=== PATIENT | female | born 1990 | race Hispanic/Latino ===

== ENCOUNTER 2020-10-09 17:30 | Inpatient (IN) | payer OTHER, BC ==
[2020-10-11 12:34] VITALS: BMI 47.6
[2020-10-12] MEDS ORDERED: Heparin 5,000 UNITS/ML VIAL ONE (09:49)
[2020-10-12] MEDS ORDERED: Fentanyl 100 MCG/2 ML VIAL ONE ×3 (10:53→13:53)
[2020-10-12] MEDS ORDERED: Bupivacaine 0.25% HCL 30 ML VIAL ONE (11:33)
[2020-10-12] MEDS ORDERED: Lidocaine 1% w/Epinephrine 1:100K 20 ML VIAL ONE (11:33)
[2020-10-12] MEDS ORDERED: Midazolam HCl 2 mg/2 ml Vial ONE (11:37)
[2020-10-12] MEDS ORDERED: PROPOFOL 200 MG/20 ML VIAL ONE (12:39)
[2020-10-12] MEDS ORDERED: Ondansetron PF 4 MG/2 ML Vial ONE (12:39)
[2020-10-12] MEDS ORDERED: Ketorolac Tromethamine 30 MG/ML VIAL ONE (12:39)
[2020-10-12] MEDS ORDERED: Glycopyrrolate 0.2 MG/ML 5 ML SYRINGE ONE (12:39)
[2020-10-12] MEDS ORDERED: Dexamethasone 20 MG/5 ML VIAL ONE (12:39)
[2020-10-12] MEDS ORDERED: Lidocaine 1% PF 5 ML VIAL ONE (12:39)
[2020-10-12] MEDS ORDERED: Rocuronium Bromide 10 MG/ML (10ML VIAL) ONE (12:39)
--- NOTE | 2020-10-12 13:22 | OP ---
DATE OF PROCEDURE: 10/12/2020 PREOPERATIVE DIAGNOSES: 1. Morbid obesity with a body mass index of 48. 2. Diabetes mellitus, type 2. 3. Hyperlipidemia. 4. Hypertension. POSTOPERATIVE DIAGNOSES: 1. Morbid obesity with a body mass index of 48. 2. Diabetes mellitus, type 2. 3. Hyperlipidemia. 4. Hypertension. PROCEDURES PERFORMED: 1. Laparoscopic sleeve gastrectomy with Ethicon staple line reinforcement and 38-[place] bougie. 2. Paraesophageal hiatal hernia repair without fundoplication or mesh. ANESTHESIA: General. ESTIMATED BLOOD LOSS: Minimal. COMPLICATIONS: None. SPECIMENS: Stomach. FINDINGS: Normal postoperative EGD. DESCRIPTION OF PROCEDURE: The patient was taken to the operating room and laid supine on the operating room table. After general anesthetic was obtained, arms and legs were double strapped to bariatric table. The abdomen was prepped and draped in a sterile fashion. OG tube had been used to decompress the stomach. Left subcostal 5-mm Optiview trocar placed in usual fashion. High-flow pneumoperitoneum was obtained. Left and right abdominal 12-mm ports as well as a right subcostal 5-mm port were placed under direct visualization. Flynn retractor was brought in through a 5-mm incision at the xiphoid and used to raise the liver off the GE junction. Short gastrics were taken down from the midbody of the stomach to the left twan of diaphragm. Left twan, posterior fundus, and angle of His completely dissected, revealing a hiatal hernia. Circumferential dissection of the esophagus was performed, bringing the GE junction and fundus back into the abdominal cavity. The posterior crura were closed using an Ethibond and the Ti-KNOT system. Short gastrics had been taken down to a distance of 6 cm proximal to the pylorus. Multiple loads of an echelon stapling device with Ethicon staple line reinforcements used to perform the sleeve, the 1st was fired up at a distance of 6 cm proximal to the pylorus, angled up to the incisura. Care was taken to avoid being too close to incisura. Multiple loads were fired along the bougie. Stomach was completely transected at the angle of His. Stomach was removed from the left abdominal incision. This fascial defect was closed using GraNee needle and 0 Vicryl tie. Flynn was removed under direct visualization without bleeding or injury. EGD scope was passed through the esophagus, stomach to the level of duodenum without obstruction or bleeding. No stenosis. No stricture at the incisura. EGD scope was used to decompress stomach and was pulled and removed. All port sites were infiltrated using local anesthetic. All ports were removed under camera visualization. Pneumoperitoneum was let down. Vicryl was used to close the fascial defect from the left abdominal incisions. All incisions were irrigated and closed using 4-0 Monocryl and Dermabond. The patient was sent to Recovery in stable condition. All instrument counts, needle counts, and lap counts were correct. Job ID: [id number]
[2020-10-12] MEDS ORDERED: Dextrose 50% Abboject 50 ML SYRINGE SLOW IVP PRN (13:25)
[2020-10-12] MEDS ORDERED: SYMBICORT INH PRN (13:25)
[2020-10-12] MEDS ORDERED: Promethazine HCl 25 MG/ML VIAL IM PRN ×2 (13:25→13:42)
[2020-10-12] MEDS ORDERED: hydrALAZINE 20 MG/ML VIAL SLOW IVP PRN (13:25)
[2020-10-12] MEDS ORDERED: Dextrose 5% in Water 1,000 ML IV PRN (13:25)
[2020-10-12] MEDS ORDERED: diphenhydrAMINE 50 MG/ML VIAL IVP PRN ×2 (13:25→13:42)
[2020-10-12] MEDS ORDERED: Ondansetron PF 4 MG/2 ML Vial IVP PRN ×2 (13:25→13:42)
[2020-10-12] MEDS ORDERED: Hydrocodone-Acetamin 15 ML UDCUP PO PRN ×2 (13:25→13:49)
[2020-10-12] MEDS ORDERED: HumaLOG 300 UNITS/3 ML VIAL SC PRN (13:25)
[2020-10-12] MEDS ORDERED: Promethazine HCl 25 MG/ML VIAL ONE (13:27)
[2020-10-12] MEDS ORDERED: fentaNYL Citrate/PF 2,000 MCG in Sodium Chloride 0.9% 60 ML IV PRN (13:42)
[2020-10-12] MEDS ORDERED: diphenhydrAMINE 25 MG CAP PO PRN (13:42)
[2020-10-12] MEDS ORDERED: Naloxone HCl 0.4 mg/ml Vial IV PRN (13:42)
[2020-10-12] MEDS ORDERED: diphenhydrAMINE 50 MG/ML VIAL IM PRN (13:42)
[2020-10-12] MEDS ORDERED: Zolpidem Tartrate 5 MG TAB PO PRN (13:42)
[2020-10-12] MEDS ORDERED: Ketorolac Tromethamine 30 MG/ML VIAL IVP PRN (13:42)
[2020-10-12] MEDS ORDERED: Sodium Chloride 0.9% (PF) 10 ML VIAL FS PRN (13:45)
[2020-10-12] MEDS ORDERED: Communication Order-Pharmacy FS SCH (13:45)
[2020-10-12] MEDS: D5 1/2 NS w/20 mEq KCL 1,000 ML IV SCH ×2 (16:40→21:17)
[2020-10-12] MEDS ORDERED: Empagliflozin 25 MG TAB PO SCH (21:00)
[2020-10-12] MEDS ORDERED: Enoxaparin Sodium 40 MG/0.4 ML SYRINGE SC SCH (21:00)
[2020-10-13] MEDS: D5 1/2 NS w/20 mEq KCL 1,000 ML IV SCH (04:24)
[2020-10-13 06:48] LABS: #Lymphocytes 1.7 thou/uL (1.20-3.40); #Monocytes 0.6 thou/uL (0.11-0.59); #Neutrophils 7.4 thou/uL (1.40-6.50); %Basophils 0.1 % (0.0-1.0); %Eosinophils 0.1 % (0.0-10.0); %Lymphocytes 17.3 % (21.0-51.0); %Monocytes 6.6 % (0.0-10.0); %Neutrophils 75.9 % (42.0-75.0); Hemoglobin 14.3 g/dL (12.0-16.0); Mean Corpuscular HGB CONC 34.6 g/dL (32.0-36.0); Mean Corpuscular Hemoglobin 30.5 pg (27.0-31.0); Mean Corpuscular Volume 88.1 fL (78.0-98.0); Mean Platelet Volume 8.2 fL (7.4-10.4); Platelet Count 328 thou/uL (130-400); RBC Distribution Width 14.2 % (11.5-14.5); Red Blood Cell (RBC) Count 4.69 mill/uL (4.20-5.40); White Blood Cell (WBC) Count 9.7 thou/uL (4.8-10.8)
[2020-10-13 07:10] LABS: Anion Gap 17 mmol/L (10-20); BUN (Urea Nitrogen) 7 mg/dL (7.0-18.7); Calc. Creatinine Clearance 241 mL/min (70-130); Calcium 8.9 mg/dL (7.8-10.44); Carbon Dioxide 14 mmol/L (22-29); Chloride 107 mmol/L (98-107); Estimated GFR-MDRD Greater than 90; Glucose 107 mg/dL (70-105); Sodium 134 mmol/L (136-145)
--- NOTE | 2020-10-13 08:02 | DIS ---
DATE OF ADMISSION: 10/12/2020 DATE OF DISCHARGE: 10/13/2020 ADMIT DIAGNOSES: Morbid obesity and diabetes mellitus. DISCHARGE DIAGNOSES: Morbid obesity and diabetes mellitus. PROCEDURES: Laparoscopic sleeve gastrectomy and hiatal hernia repair by Dr. Carroll without complication. CONDITION ON DISCHARGE: Improved. STAFF: Rahul Carroll MD HOSPITAL COURSE: On postop day 1, the patient is tolerating the liquids without difficulty. She has pain at her largest incision site. She has been ambulatory. On physical exam, her chest is clear. Her incisions are healing well. ASSESSMENT: Discharged home status post sleeve gastrectomy. PLAN: Follow up with me in 2 weeks. Job ID: [id number]
[2020-10-13] MEDS ORDERED: Pantoprazole 40 MG VIAL IVP SCH (09:00)
[2020-10-13 11:26] VITALS: TEMP 97.8
[2020-10-13 13:26] VITALS: BP 124/82
== END 2020-10-13 13:27 | disposition home or self-care (01) | DRG 621 ==
LOC: SURG A 10-12 09:22
PROVIDERS: ADMIT Surgery; ATTEND Surgery
PROC: 0DB64Z3 Excision of Stomach, Percutaneous Endoscopic Approach, Vertical (ICD-10-PCS; principal; 2020-10-12)
PROC: 0BQT4ZZ Repair Diaphragm, Percutaneous Endoscopic Approach (ICD-10-PCS; 2020-10-12)
DX: E66.01 Morbid (severe) obesity due to excess calories (principal); Z20.828 Contact with and (suspected) exposure to other viral communicable diseases; E11.9 Type 2 diabetes mellitus without complications; E78.5 Hyperlipidemia, unspecified; E78.00 Pure hypercholesterolemia, unspecified; G43.909 Migraine, unspecified, not intractable, without status migrainosus; F41.9 Anxiety disorder, unspecified; I10 Essential (primary) hypertension; K44.9 Diaphragmatic hernia without obstruction or gangrene; Z79.899 Other long term (current) drug therapy; Z87.891 Personal history of nicotine dependence; Z68.42 Body mass index [BMI] 45.0-49.9, adult
CPT/HCPCS: 36415; 36416; 80048; 85025; 88307; 88312; C9113; J0690; J1100; J1644; J1650; J1885; J2250; J2405; J2550; J2704; J3010; J3480; S0020